=== PATIENT | female | born 1975 | race African-American/Black ===

== ENCOUNTER 2023-04-02 20:42 | Emergency (ER) | payer SELFPAY ==
[~2023-04-02] VITALS: Ht 172.7 cm; Wt 52.0 kg
[2023-04-02] MEDS ORDERED: SODIUM CHLORIDE 0.9% 1,000 ML IV ONE (22:30)
[2023-04-02 22:47] LABS: BASOPHILS % 0.2 % (0.0-2.0); EOSINOPHILS % 0.7 % (0.0-5.0); HEMATOCRIT. 40.9 % (36.0-48.0); HEMOGLOBIN. 13.8 g/dL (12.0-16.0); LYMPHOCYTES % 27.6 % (20.0-50.0); MEAN CORPUSCULAR HEMOGLOBIN 34.8 pg (28.0-32.0); MEAN CORPUSCULAR VOLUME 102.8 fL (81.0-99.0); MEAN PLATELET VOLUME 8.4 fl (7.4-10.4); MONOCYTES % 8.8 % (2.0-8.0); NEUTROPHILS % 62.7 % (40.0-76.0); PLATELET 191 x1000/uL (130-400); RED BLOOD CELL COUNT 3.98 mill/uL (4.2-5.4)
[2023-04-02 22:56] LABS: CHLORIDE 96 mEq/L (98-107)
[2023-04-02 23:05] LABS: HCG SCREEN NEGATIVE
[2023-04-02 23:06] LABS: ETHANOL BLOOD < 10 mg/dL (-10)
[2023-04-02 23:20] LABS: *AMPHETAMINES SCREEN URINE NEGATIVE (NEGATIVE); *BARBITURATES SCREEN URINE NEGATIVE (NEGATIVE); *BENZODIAZEPINES SCREEN URINE NEGATIVE (NEGATIVE); *COCAINE SCREEN URINE NEGATIVE (NEGATIVE); CANNABINOID URINE SCREEN NEGATIVE (NEGATIVE); METHADONE URINE SCREEN NEGATIVE (NEGATIVE); OPIATES URINE SCREEN NEGATIVE (NEGATIVE); PHENCYCLIDINE URINE SCREEN NEGATIVE (NEGATIVE)
[2023-04-03] MEDS ORDERED: IOHEXOL-350 100 ML BOTTLE ONE (00:24)
[2023-04-03 05:01] VITALS: BP 121/83
== END 2023-04-03 05:04 | disposition home or self-care (01) ==
LOC: ER 20:42
DX: R00.2 Palpitations (principal); R07.89 Other chest pain; F41.9 Anxiety disorder, unspecified; F32.9 Major depressive disorder, single episode, unspecified
CPT/HCPCS: 36415; 71045; 71275; 80053; 80305; 80320; 83605; 83690; 84484; 84703; 85025; 85379; 93005; 99285; J7030; Q9967; Z7610; G0480